=== PATIENT | female | born 1985 | race African-American/Black ===

== ENCOUNTER 2019-05-24 04:12 | Emergency (ER) | payer SELFPAY ==
[~2019-05-24] VITALS: Ht 162.6 cm; Wt 117.0 kg
[2019-05-24] MEDS ORDERED: DIPH25CA61 PO (04:58)
[2019-05-24] MEDS ORDERED: IBUP100T PO (04:58)
--- NOTE | 2019-05-24 05:00 | NUR ---
"i've been having pain on the left side of my face for a week. it feels hot and is swollen", also c/o sore throat and left ear popping. provided pt with katie espinal at bedside for vidal
[2019-05-24] MEDS ORDERED: DEXAMETHASONE 4 MG TABLET ONE (05:24)
--- NOTE | 2019-05-24 05:29 | NUR ---
pt medicated per mar, awaiting lab result
[2019-05-24] MEDS ORDERED: DEXAMETHASONE 4 MG TABLET PO ONE (05:30)
[2019-05-24 05:53] VITALS: BP 128/87
== END 2019-05-24 06:27 | disposition home or self-care (01) ==
LOC: ED 06:00
DX: H66.002 Acute suppurative otitis media without spontaneous rupture of ear drum, left ear (principal); H60.92 Unspecified otitis externa, left ear
CPT/HCPCS: 87081; 87880; 99283

== ENCOUNTER 2019-06-29 19:07 | Emergency (ER) | payer SELFPAY ==
[~2019-06-29] VITALS: Ht 162.6 cm; Wt 117.5 kg
[~2019-06-29 19:07] MED LIST: DIPH25CA61 PO; IBUP100T PO
[2019-06-29 19:09] VITALS: BP 152/94
[2019-06-29] MEDS ORDERED: HYDROcodone/APAP 5/325 TABLET ONE (19:58)
[2019-06-29] MEDS ORDERED: HYDROcodone/APAP 5/325 TABLET PO ONE (20:00)
== END 2019-06-29 20:09 | disposition home or self-care (01) ==
LOC: ED 20:07
DX: H66.002 Acute suppurative otitis media without spontaneous rupture of ear drum, left ear (principal); H60.12 Cellulitis of left external ear; F17.200 Nicotine dependence, unspecified, uncomplicated
CPT/HCPCS: 99283